=== PATIENT | female | born 1975 | race Caucasian/White ===

== ENCOUNTER 2018-11-15 07:27 | Day surgery (SDC) | payer OTHER ==
[~2018-11-15] VITALS: Ht 172.7 cm; Wt 86.2 kg
[~2018-11-15 07:27] MED LIST: AMB5 PO; ATI2I IV; ATORVASTATIN CA10 M1; BG MC; BROMOCRIPTINE2.5 M1 PO; CAR30 PO; CARVEDILOL25 M1; COL100 PO; COU7.5 PO; COUMADIN1 MG PO; COUMADIN2 MG PO; DEXPF IV; DILTIAZEM PO; ECO81 PO; GLU5 PO; GLU850 PO; HUMULIN R100 U/1 M1 SC; HYDROMORPHONE1 MG/ML IV; LISINOPRIL2.5 MG PO; MAG PO; METFORMIN ER500 M1 PO; METFORMIN HCL500 MG PO; NEU100 PO; PRI20 PO; SENNA LEAVES1 GRA; SENNA8.6 MG PO; TYL325 PO; XARELTO10 M1; ZES20 PO; ZOC20 PO; ZOFI IV
[2018-11-15 07:40] VITALS: BP 150/84
[2018-11-15 14:16] VITALS: BP 117/75
== END 2018-11-15 12:00 | disposition home or self-care (01) ==
LOC: GI 07:27 → OR 07:30 → GI 12:00
PROVIDERS: Internal Medicine Gastroenterology
PROC: 0DB68ZX Excision of Stomach, Via Natural or Artificial Opening Endoscopic, Diagnostic (ICD-10-PCS; principal; 2018-11-15 07:30)
DX: R13.10 Dysphagia, unspecified (principal); R10.13 Epigastric pain; I69.354 Hemiplegia and hemiparesis following cerebral infarction affecting left non-dominant side; E66.9 Obesity, unspecified; Z68.29 Body mass index [BMI] 29.0-29.9, adult; Z79.01 Long term (current) use of anticoagulants; Z79.84 Long term (current) use of oral hypoglycemic drugs; I10 Essential (primary) hypertension
CPT/HCPCS: 43235; J1200; J1610; J2250; J2310; J3010; J3490

== ENCOUNTER 2019-01-31 16:09 | Emergency (ER) | payer OTHER ==
[~2019-01-31] VITALS: Ht 167.6 cm; Wt 81.6 kg
[2019-01-31 16:13] VITALS: Ht 167.6 cm; Wt 81.6 kg
[2019-01-31 17:00] LABS: CALCIUM 9.5 mg/dL (8.5-10.1); CARBON DIOXIDE 19.8 mmol/L (21-32); CHLORIDE SERUM 103 mmol/L (98-107); GFR1 > 60 mL/min; GLUCOSE SERUM 158 mg/dL (74-106); SODIUM SERUM 137 mmol/L (136-145)
[2019-01-31 17:08] LABS: ALBUMIN 3.7 g/dL (3.4-5.0); ALKALINE PHOSPHATASE 103 U/L (46-116); ALT/SGPT 37 U/L (14-59); AST/SGOT 16 U/L (15-37); BILIRUBIN TOTAL 0.4 mg/dL (0.20-1.00)
[2019-01-31 17:14] LABS: BASOPHIL % 0.4 % (0-2); PLATELET COUNT 309 x10^3mcL (130-400)
[2019-01-31 17:18] LABS: RED CELL DISTRIBUTION WIDTH 15.1 % (11.5-14.5)
[2019-01-31 19:18] VITALS: BP 100/55
== END 2019-01-31 19:18 | disposition home or self-care (01) ==
LOC: ED 16:09
PROVIDERS: Emergency Medicine
DX: S20.211A Contusion of right front wall of thorax, initial encounter (principal); S30.1XXA Contusion of abdominal wall, initial encounter; E11.9 Type 2 diabetes mellitus without complications; Z86.73 Personal history of transient ischemic attack (TIA), and cerebral infarction without residual deficits; W18.30XA Fall on same level, unspecified, initial encounter; Y93.89 Activity, other specified; Y92.89 Other specified places as the place of occurrence of the external cause; Y99.8 Other external cause status; I10 Essential (primary) hypertension
CPT/HCPCS: J2270; J2405; J3010; J7030; Q0092; Q9967